=== PATIENT | female | born 1995 | race African-American/Black ===

== ENCOUNTER 2017-09-08 04:08 | Emergency (ER) | payer OTHER ==
[~2017-09-08] VITALS: Ht 177.8 cm; Wt 72.0 kg
--- NOTE | 2017-09-08 04:16 | ERA ---
ER Documentation Chief Complaint Date/Time DATE: 09/08/17 TIME: 04:16 Chief Complaint Drinking too much tonight HPI The patient is a 21-year-old female, presenting to the ER because she was found sleeping in front of her apartment complex. Bystanders called 911. She is awake, alert, able to answer appropriately. She denies suicidal/homicidal ideation. She simply drank too much tonight. She denies any head pain, neck pain, chest pain, abdominal pain, complaints of nausea with no vomiting, denies dysuria diarrhea or constipation. She does not smoke nor does illicit drug Past medical/surgical history: None ROS All systems reviewed and are negative except as per history of present illness. Medications Home Meds Active Scripts Ondansetron (Ondansetron Odt) 4 Mg Tab.rapdis, 4 MG PO Q6H Y for NAUSEA AND/OR VOMITING, #10 TAB Prov:SHEYLA ACOSTA MD 09/08/17 Physical Exam Vitals Vital Signs Date Time Temp Pulse Resp B/P Pulse Ox O2 Delivery O2 Flow Rate FiO2 09/08/17 04:27 97.8 109 17 117/85 100 Physical Exam Const: No acute distress. Head: Atraumatic. Eyes: Normal Conjunctiva. ENT: Normal External Ears, Nose and Mouth. Neck: Full range of motion. No meningismus. Resp: Clear to auscultation bilaterally. Cardio: Regular rate and rhythm. Abd: Soft, non distended, normal bowel sounds, non tender. Skin: No petechiae or rashes. Back: No midline or flank tenderness. Ext: No cyanosis, or edema. Neur: Awake and alert. No focal deficit Psych: Normal Mood and Affect. Results 24 hrs Current Medications Medications (Trade) Dose Ordered Sig/Brea Route PRN Reason Start Time Stop Time Status Last Admin Dose Admin Sodium Chloride (NS) 1,000 ml @ 1,000 mls/hr Q1H ONCE IV 09/08/17 04:30 09/08/17 05:29 09/08/17 04:31 Ondansetron HCl (Zofran Inj) 4 mg ONCE STAT IV 09/08/17 04:22 09/08/17 04:23 DC 09/08/17 04:31 Procedures/MDM MEDICAL MAKING DECISION: It is a 21-year-old female, presenting to the ER because of alcohol abuse tonight. She does not have any symptom or sign of trauma, alcohol withdrawal, nor pancreatitis. She is stable for outpatient follow-up Departure Diagnosis: Primary Impression: Alcohol abuse Condition: Good Comments She will be discharged with Adrian I discussed the findings with the patient. I advised the patient to follow-up with the primary physician in about 1-2 days, sooner if needed and return if any concern. SHEYLA ACOSTA MD Sep 08, 2017 04:16
[2017-09-08] MEDS ORDERED: ONDANSETRON 4 MG INJ IV STA (04:22)
[2017-09-08] MEDS ORDERED: ONDA4TAB14 PO (04:26)
[2017-09-08 04:27] VITALS: Ht 177.8 cm; Wt 72.0 kg
[2017-09-08] MEDS ORDERED: SOD CHLORIDE 0.9% 1,000 ML IV ONE (04:30)
[2017-09-08 05:24] VITALS: BP 114/63; PULSE 68; RESP 17; TEMP 97.8
== END 2017-09-08 05:34 | disposition home or self-care (01) ==
LOC: E/R 04:08
DX: F10.10 Alcohol abuse, uncomplicated (principal)
CPT/HCPCS: 96374; 99284; J2405; J7030